=== PATIENT | male | born 1980 | race African-American/Black ===

== ENCOUNTER 2018-02-13 18:17 | Emergency (ER) | payer OTHER ==
[2018-02-13 20:17] LABS: #Basophils 0.1 thou/uL (0.0-0.2); #Eosinphils 0.1 thou/uL (0.0-0.7); #Lymphocytes 2.3 thou/uL (1.20-3.40); #Monocytes 0.6 thou/uL (0.11-0.59); #Neutrophils 4.4 thou/uL (1.40-6.50); %Eosinophils 0.8 % (0.0-10.0); %Lymphocytes 30.3 % (21.0-51.0); %Monocytes 8.5 % (0.0-10.0); %Neutrophils 59.3 % (42.0-75.0); Hemoglobin 13.2 g/dL (14.0-18.0); Mean Corpuscular HGB CONC 33.1 g/dL (32.0-36.0); Mean Corpuscular Hemoglobin 31.8 pg (27.0-31.0); Mean Corpuscular Volume 96.2 fL (78.0-98.0); Mean Platelet Volume 7.6 fL (7.4-10.4); Platelet Count 204 thou/uL (130-400); RBC Distribution Width 11.2 % (11.5-14.5); Red Blood Cell (RBC) Count 4.16 mill/uL (4.70-6.10); White Blood Cell (WBC) Count 7.5 thou/uL (4.8-10.8)
[2018-02-13 20:49] LABS: ALT (SGPT) 14 U/L (8-55); AST (SGOT) 11 U/L (5-34); Alkaline Phosphatase 68 U/L (40-150); Anion Gap 13 mmol/L (10-20); BUN (Urea Nitrogen) 11 mg/dL (8.9-20.6); Bilirubin, Total 0.6 mg/dL (0.2-1.2); Calc. Creatinine Clearance 0 mL/min (70-130); Calcium 9.3 mg/dL (7.8-10.44); Carbon Dioxide 22 mmol/L (22-29); Chloride 104 mmol/L (98-107); Estimated GFR-MDRD Greater than 90; Globulin 2.7 g/dL (2.4-3.5); Glucose 132 mg/dL (70-105); Potassium 3.9 mmol/L (3.5-5.1); Protein, Total 6.7 g/dL (6.0-8.3); Sodium 135 mmol/L (136-145)
[2018-02-13] MEDS ORDERED: diphenhydrAMINE 50 MG/ML VIAL ONE (21:41)
[2018-02-13] MEDS ORDERED: Metoclopramide HCl 10 MG/2 ML VIAL ONE (21:41)
--- NOTE | 2018-02-13 22:15 | RAD ---
TWO VIEWS OF THE CHEST: 02/13/18 COMPARISON: None. HISTORY: Chest pain. FINDINGS: Two views of the chest show normal sized cardiomediastinal silhouette. There is no evidence of consol idation, mass, or pleural effusion. The bones are unremarkable. IMPRESSION: No evidence of acute cardiopulmonary disease. POS: [facility]
[2018-02-13 22:33] LABS: CKMB 0.8 ng/mL (0-6.6); Troponin I Less than 0.010 ng/mL (< 0.028)
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
--- NOTE | 2018-02-13 23:24 | CT ---
CT OF THE BRAIN WITHOUT CONTRAST: 02/13/18 COMPARISON: None. HISTORY: Migraine headache that is worsening over the last 4 to 5 days. TECHNIQUE: Multiple contiguous axial images were obtained in a CT of the brain without contrast. FINDINGS: The brain is normal in morphology and attenuation without focal lesions or confluent areas of infarct ion. There is no evidence of hydrocephalus, intracranial hemorrhage or extra-axial fluid collection. The calvarium and overlying soft tissues are unremarkable. The visualized paranasal sinuses and masto id air cells are well aerated. IMPRESSION: No evidence of acute intracranial abnormality. POS: [facility]
--- NOTE | 2018-02-13 23:28 | CT ---
NONCONTRAST CT CERVICAL SPINE: 02/13/18 HISTORY: Worsening headache. Migraine headache and blurred vision for 2 to 3 days. TECHNIQUE: Contiguous axial CT images are obtained through the cervical spine from the skull to the cervicothora cic junction. Sagittal and coronal reformat images are provided. FINDINGS: There is straightening of the normal cervical lordotic curvature. There is no fracture or subluxation involving the cervical spine. There is a small osseous density seen at the tip of the odontoid which is probably related to a calcification. This does not have the appearance for a fracture. Mild degen erative changes at the C5-6 level. Prevertebral soft tissues are within normal limits. IMPRESSION: No acute fracture or subluxation involving the cervical spine. POS: [facility]
--- NOTE | 2018-02-17 01:01 | EKG ---
Test Reason : Blood Pressure : / mmHG Vent. Rate : 058 BPM Atrial Rate : 058 BPM P-R Int : 150 ms QRS Dur : 088 ms QT Int : 408 ms P-R-T Axes : 038 000 -33 degrees QTc Int : 400 ms Sinus bradycardia Nonspecific ST and T wave abnormality Abnormal ECG Confirmed by IRINA DANIELS DO ([id number]), sports editor QUIN SHAIKH ([id number] on 02/17/2018 1:01:16 AM Referred By: Confirmed By:IRINA DANIELS DO
== END 2018-02-13 23:58 | disposition home or self-care (01) ==
LOC: ERS 18:17
DX: S09.90XA Unspecified injury of head, initial encounter (principal); R07.9 Chest pain, unspecified; V89.2XXA Person injured in unspecified motor-vehicle accident, traffic, initial encounter
CPT/HCPCS: 70450; 71046; 72100; 72125; 80053; 82550; 82553; 84484; 85025; 93005; 96361; 96374; 96375; J1200; J2765